=== PATIENT | male | born 1995 | race Hispanic/Latino ===

== ENCOUNTER 2017-09-05 07:35 | Emergency (ER) | payer SELFPAY ==
[2017-09-05] MEDS ORDERED: KETOROLAC TROMETHAMINE 30MG/ML ONE (08:12)
[2017-09-05] MEDS ORDERED: HYDROCODONE/ACETAMINOPHEN 10/325 MG TAB ONE (08:53)
== END 2017-09-05 09:28 | disposition home or self-care (01) ==
LOC: EDH 07:35
DX: S62.316A Displaced fracture of base of fifth metacarpal bone, right hand, initial encounter for closed fracture (principal); W10.8XXA Fall (on) (from) other stairs and steps, initial encounter; Y93.01 Activity, walking, marching and hiking; Y92.89 Other specified places as the place of occurrence of the external cause; Y99.8 Other external cause status
CPT/HCPCS: 29125; 73130; 96372; 99284; J1885

== ENCOUNTER 2021-03-10 10:00 | Emergency (ER) | payer SELFPAY ==
[~2021-03-10] VITALS: Ht 175.3 cm; Wt 143.8 kg
[2021-03-10 10:49] LABS: BASOPHILS % (AUTO) 0.3 % (0.0-5.0); EOSINOPHILS % (AUTO) 0.8 % (0.0-8.0); HEMATOCRIT 43.6 % (42-54); LYMPHOCYTES % (AUTO) 26.5 % (21.0-51.0); MEAN CORPUSCULAR HGB CONC 31.7 g/dL (32.0-36.0); MEAN CORPUSCULAR VOLUME 85.3 fL (79-99); MONOCYTES % (AUTO) 8.8 % (3.0-13.0); NEUTROPHILS % (AUTO) 63.3 % (40.0-77.0); PLATELET COUNT (AUTO) 269 K/uL (130-400); RED BLOOD CELL COUNT(AUTO) 5.11 MIL/uL (4.50-6.20); RED CELL DISTRIBUTION WIDTH 12.8 % (11.0-15.5); WHITE BLOOD COUNT (AUTO) 12.6 K/uL (4.8-10.8)
[2021-03-10 11:01] LABS: CREATININE 1.3 mg/dL (0.5-1.5); POTASSIUM 3.9 mmol/L (3.5-5.1)
[2021-03-10 11:05] LABS: BILIRUBIN,TOTAL 0.8 mg/dL (0.2-1.0); TOTAL PROTEIN, SERUM 8.2 g/dL (6.0-8.3)
[2021-03-10 11:27] LABS: APPEARANCE,URINE Clear (CLEAR); BILIRUBIN,URINE Negative (NEGATIVE); COLOR,URINE Yellow (YELLOW); GLUCOSE, URINE (UA) Negative (NEGATIVE); KETONES,URINE Negative (NEGATIVE); LEUKOCYTE ESTERASE ,URINE Trace (NEGATIVE); NITRATE,URINE Negative (NEGATIVE); OCCULT BLOOD,URINE Large (NEGATIVE); PH,URINE 5.5 (5.0-8.0); PROTEIN,URINE Negative (NEGATIVE); UROBILINOGEN,URINE 0.2 mg/dL (0.2-1.0)
[2021-03-10 11:35] LABS: AMPHET/METH SCREEN,URINE NEGATIVE (NEGATIVE); BARBITURATE SCREEN, URINE NEGATIVE (NEGATIVE); BENZODIAZEPINES SCREEN,URINE NEGATIVE (NEGATIVE); CANNABINOID SCREEN,URINE NEGATIVE (NEGATIVE); COCAINE SCREEN,URINE NEGATIVE (NEGATIVE); OPIATE SCREEN,URINE NEGATIVE (NEGATIVE); PHENCYCLIDINE SCREEN,URINE NEGATIVE (NEGATIVE)
[2021-03-10] MEDS ORDERED: KETOROLAC 15MG/ML VIAL (15MG/ML) IM SCH (12:00)
[2021-03-10] MEDS ORDERED: MORPHINE 2 MG SYG ONE (12:05)
[2021-03-10] MEDS ORDERED: TAMSULOSIN HCL 0.4 MG CAP.ER.24H ONE (12:05)
[2021-03-10 12:14] LABS: RBC,URINE >100 /HPF (0-1)
[2021-03-10 12:15] LABS: BACTERIA,URINE Few /HPF (None Seen); MUCUS,URINE Few LPF (None Seen); SQUAMOUS EPITHELIAL CELL,UR Rare /HPF (0-2)
[2021-03-10] MEDS ORDERED: KETOROLAC 15MG/ML VIAL (15MG/ML) IV SCH (12:30)
[2021-03-10] MEDS ORDERED: MORPHINE 2 MG SYG IVP SCH (12:30)
[2021-03-10] MEDS ORDERED: TAMSULOSIN HCL 0.4 MG CAP.ER.24H PO SCH (12:30)
[2021-03-10] MEDS ORDERED: 0.9%NACL 1000ML 1,000 ML IV SCH (12:30)
[2021-03-10] MEDS ORDERED: TAMS-1 PO (13:16)
[2021-03-10] MEDS ORDERED: IBUP-2070 PO (13:16)
[2021-03-10] MEDS ORDERED: ACET1TAB25 PO (13:16)
[2021-03-10 13:57] VITALS: BP 156/102
[2021-03-11] MEDS ORDERED: 0.9%NACL 1000ML 1,000 ML IV SCH (12:30)
== END 2021-03-10 13:58 | disposition home or self-care (01) ==
LOC: EDH 10:00
DX: N23 Unspecified renal colic (principal); R11.2 Nausea with vomiting, unspecified; Z79.1 Long term (current) use of non-steroidal anti-inflammatories (NSAID)
CPT/HCPCS: 36415; 74176; 76705; 80053; 80305; 81001; 82150; 83690; 85025; 87088; 96361; 96374; 96375; 99284; J1885; J7030

== ENCOUNTER 2022-03-21 14:10 | Emergency (ER) | payer OTHER ==
[~2022-03-21] VITALS: Ht 172.7 cm; Wt 133.4 kg
[~2022-03-21 14:10] MED LIST: ACET-2079 PO; IBUP-2070 PO; TAMS-1 PO
[2022-03-21 14:20] VITALS: BP 157/91
[2022-03-21 15:47] LABS: BASOPHILS % (AUTO) 0.2 % (0.0-5.0); EOSINOPHILS % (AUTO) 0.9 % (0.0-8.0); HEMATOCRIT 44.9 % (42-54); LYMPHOCYTES % (AUTO) 18.7 % (21.0-51.0); MEAN CORPUSCULAR HEMOGLOBIN 27.3 pg (27.0-33.0); MEAN CORPUSCULAR VOLUME 82.7 fL (79-99); MONOCYTES % (AUTO) 5.7 % (3.0-13.0); NEUTROPHILS % (AUTO) 74.2 % (40.0-77.0); PLATELET COUNT (AUTO) 356 K/uL (130-400); RED BLOOD CELL COUNT(AUTO) 5.43 MIL/uL (4.50-6.20); RED CELL DISTRIBUTION WIDTH 13.2 % (11.0-15.5); WHITE BLOOD COUNT (AUTO) 16.3 K/uL (4.8-10.8)
[2022-03-21 16:13] LABS: CREATININE 1.1 mg/dL (0.5-1.5)
[2022-03-21 16:20] LABS: TOTAL PROTEIN, SERUM 8.3 g/dL (6.0-8.3)
== END 2022-03-21 17:08 | disposition home or self-care (01) ==
LOC: EDH 14:10
DX: F41.0 Panic disorder [episodic paroxysmal anxiety] (principal); Z20.822 Contact with and (suspected) exposure to COVID-19; Z79.899 Other long term (current) drug therapy
CPT/HCPCS: 99285; 71045; 87635; 84484; 80053; 85025; 87804 ×2; 36415; 93005; C9803

== ENCOUNTER 2024-02-24 12:11 | Emergency (ER) | payer SELFPAY ==
[~2024-02-24] VITALS: Ht 172.7 cm; Wt 126.1 kg
[2024-02-24 12:30] LABS: MEAN CORPUSCULAR HGB CONC 33.3 g/dL (32.0-36.0); RED BLOOD CELL COUNT(AUTO) 5.36 MIL/uL (4.50-6.20); RED CELL DISTRIBUTION WIDTH 12.4 % (11.0-15.5); WHITE BLOOD COUNT (AUTO) 6.2 K/uL (4.8-10.8)
[2024-02-24 12:45] LABS: POTASSIUM 3.9 mmol/L (3.5-5.1)
[2024-02-24] MEDS: ketOROlac 15MG/ML VIAL (15MG/ML) IV STA (13:02)
[2024-02-24] MEDS: 0.9%NACL 1000ML 1,000 ML IV STA (13:02)
--- NOTE | 2024-02-24 15:11 | ERN ---
ED Note History of Present Illness Stated Complaint: HEADACHE, HYPERTENSION Chief Complaint: Hypertension Time Seen by MD: 12:21 Time Seen by Midlevel: 12:26 Dictation: 28 old male coming in with complaints of headache and elevated blood pressure no started this morning. Patient states this morning he is BP was 198 systolic and his gave him a losartan from a family member. Patient states throughout the week he has had fever and chills that stopped on Sunday. Patient also states he has started taking DayQuil they help with the fever. Patient denies any chest pain, shortness a breath, nausea, vomiting or diarrhea. Allergies: Coded Allergies: No Known Drug Allergies (Unverified Allergy, Unknown, 03/10/21) Home Meds Active Scripts Tamsulosin HCl (Flomax) 0.4 Mg Cap.er.24h, 0.4 MG PO DAILY, #7 CAPSULE.DR Prov:ISAURA DANG MD 03/10/21 Acetaminophen with Codeine (Acetaminophen-Cod #3 Tablet) 1 Each Tablet, 1 EACH PO QID, #15 TAB Prov:ISAURA DANG MD 03/10/21 Ibuprofen (Ibuprofen) 600 Mg Tablet, 600 MG PO Q6H PRN for PAIN, #30 TAB Prov:ISAURA DANG MD 03/10/21 Past Medical History Past Medical History: Kidney Stone Surgical History: Other Surgical History Other: KIDNEY STONE Social History: Lives with family Review of System Dictation Constitutional: Negative for fever,chills, and weight loss Eyes: Negative for injury, pain,redness, and discharge ENT: Negative for injury,pain or swelling Cardiovascular: Negative for chest pain, palpitations, and edema Respiratory: Negative for shortness of breath, cough, and wheezing, Abdomen/GI: Negative for abdominal pain, nausea, vomiting, diarrhea, and constipation Back: Negative for injury and pain : Negative for injury, bleeding and discharge MS/Extremity: Negative for injury and deformity Skin: Negative for rash, and discoloration Neuro: Negative for headache, weakness, numbness, tingling, and seizure Psych: Negative for suicide ideation, homicidal ideation, and hallucinations Review of Systems: was completed Initial Vital Sign VS Vital Signs Date Time Temp Pulse Resp B/P (MAP) Pulse Ox O2 Delivery O2 Flow Rate FiO2 02/24/24 12:13 98.2 83 16 154/104 99 Room Air 0 02/24/24 13:09 21 Physical Exam Dictation General: awake, alert, NAD Head/Face: Normocephalic, atraumatic Eyes: PERRL, EOMI, vision at baseline ENT: oral cavity clear, TMs clear, no signs of infection Neck: Trachea midline, supple, no nuchal rigidity Cardiovascular: RRR, normal S1/S2, No MRGs, no JVD Respiratory: CTAB, no respiratory distress, No rales or wheezes Abdomen: Soft, non-tender, non-distended, normal bowel sounds, no guarding or rebound. Skin: Warm, dry, normal turgor, no rash MS/Extremity: Pulses equal, no cyanosis, neurovascular intact, FROM Neuro: COAx4, GCS 15, strength 5/5, CN 2-12 intact, normal cerebellar exam, normal gait, Psych: Normal behavior, mood, and affect normal Results (Laboratory/Radiology) Laboratory/Radiology Laboratory Tests Test 02/24/24 12:21 White Blood Count 6.2 K/uL (4.8-10.8) Red Blood Count 5.36 MIL/uL (4.50-6.20) Hemoglobin 15.0 g/dL (14.0-18.0) Hematocrit 45.0 % (42-54) Mean Corpuscular Volume 84.0 fL (79-99) Mean Corpuscular Hemoglobin 28.0 pg (27.0-33.0) Mean Corpuscular Hemoglobin Concent 33.3 g/dL (32.0-36.0) Red Cell Distribution Width 12.4 % (11.0-15.5) Platelet Count 194 K/uL (130-400) Mean Platelet Volume 10.5 fL (7.5-10.5) Nucleated Red Blood Cells 0.0 % (0.0-0.19) Sodium Level 139 mmol/L (136-145) Potassium Level 3.9 mmol/L (3.5-5.1) Chloride Level 100 mmol/L (101-111) L Carbon Dioxide Level 30 mmol/L (21-32) Blood Urea Nitrogen 5 mg/dL (7-18) L Creatinine 1.0 mg/dL (0.5-1.3) Glomerular Filtration Rate Calc 104 mL/min (>90) Random Glucose 106 mg/dL (70-105) H Total Calcium 8.8 mg/dL (8.5-10.1) Troponin I High Sensitivity < 4 ng/L (4-75) L Labs Reviewed?: Yes EKG Comment: Date:02/24/2024 Time:1215 Ventricular rate:78 MD interval:151 QRS duration:55 QT/QTc:369/420 EKG interpretation: Sinus rhythm Reviewed by ED Attending no STEMI interpreted by ER MD ED Course ED Course Orders Procedure Category Date Status Time 12 Lead Ekg Tracing- EKG 02/24/24 Logged Technical 12:16 Cbc Without LAB 02/24/24 Complete Differential 12:16 Basic Metabolic Panel LAB 02/24/24 Complete 12:16 Troponin I High LAB 02/24/24 Complete Sensitivity 12:16 0.9%Nacl 1000ml (Ns PHA 02/24/24 Complete 1000ml) 12:27 Ketorolac PHA 02/24/24 Complete Tromethamine 15mg/Ml 12:27 Current Medications Medications (Trade) Dose Ordered Sig/Nelly Route PRN Reason Start Time Stop Time Status Last Admin Dose Admin Ketorolac Tromethamine (toRADol) 15 mg ONCE STAT IV 02/24/24 12:27 02/24/24 12:28 DC 02/24/24 13:02 Sodium Chloride 1,000 ml @ 1,000 mls/hr Q1H STAT IV 02/24/24 12:27 02/24/24 13:26 DC 02/24/24 13:02 Vital Signs Date Time Temp Pulse Resp B/P (MAP) Pulse Ox O2 Delivery O2 Flow Rate FiO2 02/24/24 14:26 97.0 78 20 132/77 98 Room Air* 0 21 02/24/24 13:09 97.5 79 18 137/80 98 Room Air* 0 21 02/24/24 12:13 98.2 83 16 154/104 99 Room Air 0 Medical Decision Making MDM MDM: 28 old male coming in with complaints of headache and elevated blood pressure no started this morning. Patient states this morning he is BP was 198 systolic and his gave him a losartan from a family member. Patient states throughout the week he has had fever and chills that stopped on Sunday. Patient also states he has started taking DayQuil they help with the fever. Patient denies any chest pain, shortness a breath, nausea, vomiting or diarrhea. Blood work is unremarkable. Patient states she feels better after medication for headache. Vital signs are stable blood pressure is in the 120 systolic. Discussed findings with patient. Educated patient he needs to obtain a primary care physician to establish care and have a wheel examination has a he might start to need high blood pressure medication. Patient verbalized understanding, answered all questions. Differential diagnosis: Hypertensive urgency, renal insufficiency, anxiety Rationale: Tests considered and ordered secondary to shared decision making inc lude: Previous outside records reviewed: Old ER visits. Risk of complication and/or morbidity or mortality of patient management: None Medications-Per medication reconciliation Need for hospitalization: Patient does not meet criteria for hospitalization. Need for emergency major/minor surgery: No There are no social concerns with this patient. Prescription drug management Prescriptions will include symptomatic care Patient's prior external medical records from other ER visits were reviewed by me as indicated. Prior testing and results from previous visits were reviewed. Prior tests were taken into account with medical decision making and resource utilization, independent historian/historians were used to obtain complete medical history. I independently interpreted the test that were performed, results were reviewed by me and considered findings on radiology if ordered. Medical management and examination interpretation discussions were had by me with other qualified healthcare professionals as indicated for the patient's care. DX & DISP Disposition: Discharge Departure Impression: Primary Impression: Headache Condition: Stable Additional Instructions: Please obtain a primary care physician and establish care. Return to the ER if any symptoms worsen. Referrals: SELF,REFERRAL (PCP) Time of Disposition: 15:11 I have reviewed the case, and I agree with, Diagnosis and Plan WANDA FUNEZ NP Feb 24, 2024 15:11
[2024-02-24 15:12] VITALS: BP 123/71; PULSE 84; RESP 18; TEMP 98.8; O2SAT 98
--- NOTE | 2024-02-24 15:53 | EKG ---
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
--- NOTE | 2024-02-25 10:24 | EKG ---
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
== END 2024-02-24 15:19 | disposition home or self-care (01) ==
LOC: EDH 12:11
DX: R51.9 Headache, unspecified (principal); I10 Essential (primary) hypertension; Z79.899 Other long term (current) drug therapy; Z98.890 Other specified postprocedural states
CPT/HCPCS: 99284; 96374; 96361; 84484; 80048; 85027; 36415; 93005; J7030; J1885

== ENCOUNTER 2024-12-07 15:21 | Emergency (ER) | payer BC ==
[~2024-12-07] VITALS: Ht 172.7 cm; Wt 130.6 kg
[~2024-12-07 15:21] MED LIST changes: +IBUP-1492 PO; -IBUP-2070 PO; -TAMS-1 PO; +TAMS-55 PO
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
--- NOTE | 2024-12-07 16:04 | NUR ---
wound care done to elbow and left knee with wound bin cleaner. both sites are no longer bleeding
[2024-12-07] MEDS: LIDOCAINE HCL 1% 20 ML VIAL INJ STA (16:18)
--- NOTE | 2024-12-07 17:02 | NUR ---
6 sutures to left knee
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
--- NOTE | 2024-12-07 17:25 | HMCIMG ---
EXAM: Left knee, 3 View. CLINICAL HISTORY: fall COMPARISON: None provided. FINDINGS: BONES: No acute fracture or aggressive appearing osseous lesion. JOINTS: The joint spaces show no significant degenerative disease. There is no joint effusion appreciated. SOFT TISSUES: The soft tissues are unremarkable. IMPRESSION: No acute osseous pathology evident. /[place]
[2024-12-07 17:27] VITALS: BP 157/89; PULSE 78; RESP 18; TEMP 97.9; O2SAT 98
== END 2024-12-07 17:28 | disposition home or self-care (01) ==
LOC: EDH 15:21
DX: S81.012A Laceration without foreign body, left knee, initial encounter (principal); V29.99XA Rider (driver) (passenger) of other motorcycle injured in unspecified traffic accident, initial encounter; Y93.55 Activity, bike riding; Y92.89 Other specified places as the place of occurrence of the external cause; Y99.8 Other external cause status
CPT/HCPCS: 12002; 73562; 90471; 90714; 99284